=== PATIENT | female | born 1970 | race Caucasian/White ===

== ENCOUNTER 2016-10-25 19:05 | Emergency (ER) | payer BC ==
--- NOTE | ~2016-10-25 | EKG ---
PATIENT: NYDIA HUNTER UNIT #: [id number] Ventricular Rate: 73 BPM Atrial Rate: 73 BPM P-R Interval: 152 ms QRS Duration: 108 ms Q-T Interval: 418 ms QTC Calculation(Bezet): 460 ms P [place]: 24 degrees Calculated R [place]: -15 degrees Diagnosis Line: Normal sinus rhythm Diagnosis Line: Incomplete right bundle branch block Diagnosis Line: Nonspecific T wave abnormality Diagnosis Line: Prolonged QT Diagnosis Line: Abnormal ECG Diagnosis Line: No previous ECGs available Diagnosis Line: Confirmed by STEPHANIE VERA MD ([id number]) on Diagnosis Line: 10/27/2016 11:21:41 AM INTERPRETING MD: JODY CEBALLOS
--- NOTE | ~2016-10-25 | CR63 ---
[facility] A Service of [facility] RADIOLOGY TEXT RESULTS PATIENT: NYDIA HUNTER LOCATION: SED : 68 UNIT #: [id number] AGE: [address]: Steffi Silver APRN SEX: F ORDER DR: [id number] [place] [id number] E MR#: [id number] Acc #: [id number] NAME: NYDIA HUNTER : 1970 SEX: F STUDY DATE/TIME: 10/25/2016 19:34 UNIT: SED ROOM: STUDY DESCRIPTION: CR Chest 2 View Attending Physician: Steffi Silver A.P.R.N. Ordering Physician: Steffi Silver A.P.R.N. Primary Care Physician: Primary Care Physician No MEDICAL IMAGING REPORT This report is preliminary unless electronic signature is present. EXAM Chest 2 views HISTORY 46-year-old female cough, congestion, shortness of air x1 week. Bronchitis. COMPARISON 05/27/2014. FINDINGS PA and lateral examination of the chest upright shows a good expansion of the parenchyma with a normal distribution of the pulmonary vascularity. There is no indication of congestion, effusion, infiltrate, tumor, or nodular density. The pleural reflections and diaphragmatic contours are normal. The cardiac silhouette and mediastinal anatomy is within normal limits. IMPRESSION Normal chest. Dictated by... Maile Guzman M.D. THIS IS AN ELECTRONICALLY VERIFIED REPORT Maile Guzman M.D. at 10/26/2016 6:32 PM BRIDGERS/rivka [facility] A Service of [facility] RADIOLOGY TEXT RESULTS PATIENT: NYDIA HUNTER LOCATION: SED : 68 UNIT #: [id number] AGE: [address]: Steffi Silver APRN SEX: F ORDER DR: TD: 10/26/2016 09:17 JOB #: [id number] MEDICAL IMAGING REPORT
[~2016-10-25 19:05] MED LIST: BENZONATATE PO; DULOXETINE HCL60 M1; IRBESARTAN150 MG PO; LEVOFLOXACIN500 MG PO; LIPITOR20 MG PO; VITAMIN D-32000 UNI1 PO; ZYRTEC10 M1 PO
[2016-10-25 19:24] LABS: BASOPHIL% 0.3 % (0-2.5); EOSINOPHIL# 0.2 X10e3 (0-0.7); EOSINOPHIL% 3.3 % (0.0-7.0); HEMATOCRIT 38.5 % (35.0-45.0); HEMOGLOBIN 12.7 gm/dL (12.0-16.0); LYMPHOCYTE# 1.4 X10e3 (1.0-3.5); LYMPHOCYTE% 18.4 % (17.0-45.0); MEAN CELL VOLUME 86.8 FL (83-96); MEAN CORPUSCULAR HEMOGLOBIN 28.6 PG (28-34); MEAN CORPUSCULAR HGB CONC 32.9 g/dL (30-36); MEAN PLATELET VOLUME 8.4 FL (6.5-11.5); MONOCYTE# 0.5 X10e3 (0-1.0); MONOCYTE% 7.3 % (3.0-12.0); NEUTROPHIL# 5.2 X10e3 (1.5-7.1); NEUTROPHIL% 70.7 % (40-75); PLATELET COUNT 218 X10e3 (140-420); RED BLOOD COUNT 4.43 X10e (3.90-5.30); WHITE BLOOD COUNT 7.4 X10e3 (4.0-10.5)
[2016-10-25 19:28] LABS: DIFF IND NO
[2016-10-25 19:41] LABS: POC - CKMB 1.5 ng/mL (0.0-7.9)
[2016-10-25 19:42] LABS: POC - TROPONIN <0.05 ng/mL (<=0.05)
[2016-10-25 19:42] LABS: BLOOD UREA NITROGEN 10 mg/dL (9-23); CALCIUM SERUM 9.4 mg/dL (8.4-10.2); CARBON DIOXIDE 28 mmol/L (22-31); CHLORIDE 103 mmol/L (100-111); CREATININE SERUM 0.8 mg/dL (0.6-1.4); GLOM FILT RATE Estimated ABOVE60 mL/min (>60); GLUCOSE FASTING 117 mg/dL (70-110); POTASSIUM 3.8 mmol/L (3.5-5.1); SODIUM 137 mmol/L (135-145)
[2016-10-25 20:08] LABS: INFLUENZA A NEG (NEG); INFLUENZA B NEG (NEG)
[2016-10-25 21:06] LABS: POC - CKMB 1.1 ng/mL (0.0-7.9); POC - MYOGLOBIN 34.8 ng/mL (0.0-169.0)
[2016-10-25 21:07] LABS: POC - TROPONIN <0.05 ng/mL (<=0.05)
== END 2016-10-25 21:33 | disposition home or self-care (01) ==
LOC: SED 19:05
PROVIDERS: Nurse Practitioner
DX: J40 Bronchitis, not specified as acute or chronic (principal); J01.90 Acute sinusitis, unspecified; I10 Essential (primary) hypertension
CPT/HCPCS: 36415; 71020; 80048; 82553; 83874; 84484; 85025; 87651; 87804; 93005; 96360; 99284